=== PATIENT | female | born 2000 | race Caucasian/White ===

== ENCOUNTER 2023-04-13 18:39 | Emergency (ER) | payer OTHER ==
[2023-04-13 19:50] LABS: Specific Gravity 1.013 (1.005-1.030)
[2023-04-13 19:54] LABS: Specific Gravity 1.013 (1.005-1.030); Urine Bacteria None Seen /HPF (<20); Urine Bilirubin NEGATIVE (Negative); Urine Blood Negative (Negative); Urine Clarity Turbid (Clear); Urine Color Light-Yellow (Yellow); Urine Glucose NEGATIVE (Negative); Urine Mucus Slight /HPF (None Seen); Urine Protein NEGATIVE (Negative); Urine RBC <5 /HPF (None Seen); Urine Urobilinogen Normal (Normal); Urine pH 5.5 (5.0-7.0)
[2023-04-13] MEDS ORDERED: KETOROLAC 30 MG/ML INJ ONE (19:58)
--- NOTE | 2023-04-13 19:58 | RAD REPORT ---
EXAM DESCRIPTION: RAD - Lumbar Spine 3 Views - 04/13/2023 7:47 pm CLINICAL HISTORY: PAIN COMPARISON: No comparisons FINDINGS/IMPRESSION: No acute fracture. No malalignment. No significant focal degenerative changes.
--- NOTE | 2023-04-13 20:44 | ER ---
Nurse's Notes [facility] Name: Jayne Jaramillo Age: 23 yrs Sex: Female : 2000 Arrival Date: 04/13/2023 Time: 18:39 Bed 10 Private MD: Diagnosis: Low back pain Presentation: 04/13 19:10 Chief complaint: Patient states: I'm having back pain. Last night I heard a loud pop in vc1 the shower and then I slipped and hit my back on the toilet. Coronavirus screen: Client denies travel out of the [place] in the last 14 days. At this time, the client does not indicate any symptoms associated with coronavirus-19. Ebola Screen: Patient negative for fever greater than or equal to 101.5 degrees Fahrenheit, and additional compatible Ebola Virus Disease symptoms Patient denies exposure to infectious person. Patient denies travel to an Ebola-affected area in the 21 days before illness onset. No symptoms or risks identified at this time. Risk Assessment: Do you want to hurt yourself or someone else? Patient reports no desire to harm self or others. Onset of symptoms was April 12, 2023. 19:10 Method Of Arrival: Ambulatory vc1 19:10 Acuity: MICAH 4 vc1 19:14 Initial Sepsis Screen: Does the patient meet any 2 criteria? No. Patient's initial vc1 sepsis screen is negative. Does the patient have a suspected source of infection? No. Patient's initial sepsis screen is negative. Triage Assessment: 19:13 General: Appears in no apparent distress. uncomfortable, Behavior is calm, cooperative, vc1 appropriate for age. Pain: Complains of pain in back and lumbar area Pain radiates to low back area Pain currently is 10 out of 10 on a pain scale. Quality of pain is described as crampy, heavy. 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 - Social history:: Smoking status: Reported history of juuling and/or vaping. Screenin:14 [facility] ED Fall Risk Assessment (Adult) History of falling in the last 3 months, vc1 including since admission No falls in past 3 months (0 pts) Confusion or Disorientation No (0 pts) Intoxicated or Sedated No (0 pts) Impaired Gait No (0 pts) Mobility Assist Device Used No (0 pt) Altered Elimination No (0 pt). Abuse screen: Denies threats or abuse. Nutritional screening: No deficits noted. Tuberculosis screening: No symptoms or risk factors identified. Assessment: 21:02 Reassessment: Patient appears in no apparent distress at this time. Patient states kl feeling better. Patient states symptoms have improved. Neuro: No deficits noted. Vital Signs: 19:10 Weight 54.43 kg; Height 4 ft. 10 in. ; Pain 10/10; vc1 19:14 BP 105 / 65; Pulse 95; Resp 18; Temp 99; Pulse Ox 100% ; vc1 21:02 Pulse 62; Resp 16; Pulse Ox 98% on R/A; kl 19:10 Body Mass Index 25.08 (54.43 kg, 147.32 cm) vc1 19:10 Pain Scale: Adult vc1 ED Course: 18:42 Patient arrived in ED. ts1 18:47 Michelle Chung FNP-C is PHCP. kb 18:47 Tatiana Tian MD is Attending Physician. kb 19:12 Triage completed. vc1 19:13 Arm band placed on left wrist. vc1 19:15 PHCP role handed off by Michelle Chung FNP-C cp 19:15 Joshua Turner PA is PHCP. cp 19:24 Urinalysis w/ reflexes Sent. vc1 19:24 Test, Urine Sent. vc1 19:49 Lumbar Spine (3 Views) XRAY In Process Unspecified. EDMS 21:02 No provider procedures requiring assistance completed. Patient did not have IV access kl during this emergency room visit. Administered Medications: 19:50 Drug: Ketorolac IM 30 mg Route: IM; Site: right ventrogluteal; kl 21:02 Follow up: Response: No adverse reaction; Marked relief of symptoms kl 21:02 Drug: Lidoderm Topical Patch 5 % (700 mg/patch) 1 patches Route: Topical; Site: kl affected area; 21:02 Follow up: Response: No adverse reaction Outcome: 20:43 Discharge ordered by . roz 21:02 Discharged to home ambulatory. 21:02 Condition: improved 21:02 Discharge instructions given to patient, Instructed on discharge instructions, follow up and referral plans. medication usage, Demonstrated understanding of instructions, follow-up care, medications, Prescriptions given X 1. 21:03 Patient left the ED. Signatures: Dispatcher [employer] EDMichelle Suero, MICHELLE-Jeff MARTINEZ-Maida Rodas RN RN Joshua Johansen, PA PA Daniella Herrera RN RN vc1 Marifer Harrell, PAS PAS ts1 Corrections: (The following items were deleted from the chart) 19:13 19:12 Home Meds: None; vc1 vc1
--- NOTE | 2023-04-13 20:44 | EDPHYS ---
Physician Documentation [facility] Name: Jayne Jaramillo Age: 23 yrs Sex: Female : 2000 Arrival Date: 04/13/2023 Time: 18:39 Bed 10 Private MD: ED Physician Tatiana Tian HPI: 04/13 19:13 This 23 yrs old Female presents to ER via Ambulatory with complaints of Back Pain. kb 19:13 The patient presents with pain that is acute. The symptoms are located in the lumbar kb spine. Onset: The symptoms/episode began/occurred yesterday. The pain does not radiate. Associated signs and symptoms: The patient has no apparent associated signs or symptoms. The problem was sustained during a fall, while standing. Modifying factors: The patient symptoms are alleviated by nothing, the patient symptoms are aggravated by any movement. Severity of symptoms: At their worst the symptoms were mild, moderate, in the emergency department the symptoms are unchanged. The patient has not experienced similar symptoms in the past. The patient has not recently seen a physician. Pt reports she slipped when she got out of the tub and hit her lower back. c/o pain to lumbar area. Ambulates with steady gait. No numbness or tingling down legs. no urinary symptoms. 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 - Social history:: Smoking status: Reported history of juuling and/or vaping. ROS: 19:11 Constitutional: Negative for fever, chills, and weight loss. kb 19:11 Back: Positive for pain at rest, pain with movement, of the lumbar area. 19:11 All other systems are negative. Exam: 19:11 Constitutional: This is a well developed, well nourished patient who is awake, alert, kb and in no acute distress. Head/Face: Normocephalic, atraumatic. ENT: Moist Mucous membranes Cardiovascular: Regular rate and rhythm with a normal S1 and S2. No gallops, murmurs, or rubs. No pulse deficits. Respiratory: Respirations even and unlabored. No increased work of breathing. Talking in full sentences Skin: Warm, dry with normal turgor. Normal color. MS/ Extremity: Pulses equal, no cyanosis. Neurovascular intact. Full, normal range of motion. Neuro: Awake and alert, GCS 15, oriented to person, place, time, and situation. Moves all extremities. Normal gait. 19:11 Back: pain, that is moderate, of the lumbar area, ROM is painful, normal spinal alignment noted. Vital Signs: 19:10 Weight 54.43 kg; Height 4 ft. 10 in. ; Pain 10/10; vc1 19:14 BP 105 / 65; Pulse 95; Resp 18; Temp 99; Pulse Ox 100% ; vc1 21:02 Pulse 62; Resp 16; Pulse Ox 98% on R/A; kl 19:10 Body Mass Index 25.08 (54.43 kg, 147.32 cm) vc1 19:10 Pain Scale: Adult vc1 MDM: 18:47 Patient medically screened. kb 19:11 Differential diagnosis: vertebral fracture, strain, contusion, herniated disc. Data kb reviewed: vital signs, nurses notes. 19:16 Transition of care: After a detail discussion of the patient's case, care is kb transferred to Joshua GILMAN. 04/13 19:11 Order name: Test, Urine; Complete Time: 20:40 kb 04/13 19:16 Order name: Urinalysis w/ reflexes; Complete Time: 20:40 kb 04/13 19:11 Order name: Lumbar Spine (3 Views) XRAY; Complete Time: 20:40 kb Administered Medications: 19:50 Drug: Ketorolac IM 30 mg Route: IM; Site: right ventrogluteal; kl 21:02 Follow up: Response: No adverse reaction; Marked relief of symptoms kl 21:02 Drug: Lidoderm Topical Patch 5 % (700 mg/patch) 1 patches Route: Topical; Site: kl affected area; 21:02 Follow up: Response: No adverse reaction kl Disposition Summary: 04/13/23 20:43 Discharge Ordered Location: Home cp Problem: new cp Symptoms: have improved cp Condition: Stable cp Diagnosis - Low back pain cp Followup: cp - With: Private Physician - When: 2 - 3 days - Reason: Worsening of condition Discharge Instructions: - Discharge Summary Sheet cp - Acute Back Pain, Adult cp Forms: - Medication Reconciliation Form cp - Thank You Letter cp - Antibiotic Education cp - Prescription Opioid Use cp - Patient Portal Instructions cp - Leadership Thank You Letter cp Prescriptions: - Diclofenac Sodium 75 mg Oral tablet,delayed release (DR/EC) - take 1 tablet by ORAL route 2 times per day; 20 tablet; Refills: 0, Product cp Selection Permitted Signatures: Dispatcher [employer] EDMichelle Suero, MICHELLE-C MICHELLE-Maida Rodas RN RN Joshua Johansen, KALINA PA cp Daniella Santos RN RN vc1 Corrections: (The following items were deleted from the chart) 19:13 19:12 Home Meds: None; vc1 vc1
[2023-04-13] MEDS ORDERED: LIDOCAINE 4% PATCH ONE (21:07)
[2023-04-13 21:12] VITALS: BP 105/65; TEMP 99
[2023-04-13 21:15] VITALS: O2SAT 98
== END 2023-04-13 21:03 | disposition home or self-care (01) ==
LOC: ER 18:39
DX: M54.50 Low back pain, unspecified (principal)
CPT/HCPCS: 81001; 81025; 72100; 96372; 99284; J2001

== ENCOUNTER 2023-07-25 12:19 | Emergency (ER) | payer OTHER, SELFPAY ==
--- OUTSIDE RECORDS SUMMARY | 2023-07-25 12:23 | XMS REPORT | Continuity of Care Document ---
Author Name Unknown Address [address] [place] [address] [email or web address] Address [address] [place] [address] Care Team Providers Care Patient Transition Specialist Name Role Phone Pcp, Patient Does Not Have A Primary Care Physic fredy PELON LUQUE S Attending Clinician Unavailable Pelon Luque MD Attending Clinician [phone] Payers Payer Name Policy Type Policy Number Effective Date Expirati on Date Source [facility] [id number] 2022 00:00:00 Allergies, Adverse Reactions, Alerts Allergy Name Allergy Type Status Severity Reaction(s) Onset Date Inactive Date Treating Clinician Comments Source Cinnamon Propensi ty to adverse reaction s Active Swelling 11-25 00:00: 00 Entire body swelling [facility] CINNAMON DRUG INGREDI Active Swelling 11-25 00:00: 00 [facility] NO KNOWN ALLERGIE S Drug Class Active [facility] Social History Social Habit Start Date Stop Date Quantity Comments Source Exposure to SARS-CoV-2 (event) 2022-11-15 00:00:00 2022-11-25 20:22:00 Not sure [facility] Sex Assigned At 2000 00:00:00 2000 00:00:00 [facility] Smoking Status Start Date Stop Date Source Tobacco smoking consumption unknown [facility] Medications Ordered Medication Name Filled Medication Name Start Date Stop Date Current Medication? Ordering Clinician Indication Dosage Frequency Signature (SIG) Comments Components Source acetaminoph en (TYLENOL) tablet 650 mg 11-26 01:30: 00 11-26 01:35 :00 No 650mg 650 mg, Oral, ONCE, 1 dose, On Fri11/25/22 at 2030, JARED [facility] ibuprofen 800 mg tablet 11-26 00:00: 00 Yes [id number] 800mg Take 1 tablet by mouth every 8 (eight) hours as needed for Temp > 38.5 C or Pain (scale 4-6). [facility] benzonatate 200 mg capsule 11-26 00:00: 00 Yes [id number] 200mg Take 1 capsule by mouth 3 (three) times daily as needed for Cough. [facility] Vital Signs Vital Name Observation Time Observation Value Comments S ana maria Systolic blood pressure 2022-11-26 06:06:19 103 mm[Hg] [facility] Diastolic blood pressure 2022-11-26 06:06:19 71 mm[Hg] [facility] Heart rate 2022-11-26 06:06:19 108 /min [facility] Body temperature 2022-11-26 06:06:19 37.72 [place] [facility] Respiratory rate 2022-11-26 06:06:19 18 /min [facility] Oxygen saturation in Arterial blood by Pulse oximetry 2022-11-26 06:06:19 100 /min [facility] Body height 2022-11-26 01:22:[address] [facility] Body weight 2022-11-26 01:22:[address] [facility] BMI 2022-11-26 01:22:00 22.54 kg/m2 [facility] Procedures Procedure Date / Time Performed Performing Clinicia n Source RAPID INFLUENZA A/B 2022-11-26 01:41:00 Pelon Luque [facility] POCT TEST 2022-11-26 01:41:00 Pelon Luque [facility] COVID-19 (ID NOW RAPID TESTING) 2022-11-26 01:41:00 Pelon Luque [facility] NOTICE OF PRIVACY PRACTICES 2022-11-26 01:05:39 Doctor Unassigned, [place] [facility] CONSENT/REFUSAL FOR DIAGNOSIS AND TREATMENT 2022-11-26 01:05:18 Doctor Unassigned, [place] [facility] Encounters Start Date/Time End Date/Time Encounter Type Admission Type Attending [facility] Care Facility Care Department Encounter ID Source 2022-11-25 20:27:00 2022-11-26 01:08:00 Emergency X PELON LUQUE [facility] ERT [id number] [facility] 2022-11-25 20:27:00 2022-11-26 01:08:00 Emergency Pelon Luque [facility] [id number] [facility] Results Test Description Test Time Test Comments Results Result Co mments Source [facility]
[2023-07-25 13:12] LABS: SARS-CoV-2 Antigen Rapid Res Negative (Negative)
[2023-07-25] MEDS ORDERED: ALBUTEROL 2.5 MG/3 ML NEB SOL ONE (14:54)
[2023-07-25] MEDS ORDERED: IPRATROPIUM BROM 0.5MG/2.5ML ONE (14:54)
--- NOTE | 2023-07-25 15:12 | ER ---
Nurse's Notes [facility] Name: Jayne Jaramillo Age: 23 yrs Sex: Female : 2000 Arrival Date: 07/25/2023 Time: 12:19 Bed DIS3 Private MD: Diagnosis: Acute upper respiratory infection, unspecified Presentation: 07/25 12:48 Chief complaint: Cough and runny nose x 2 days. Coronavirus screen: Client presents hb with at least one sign or symptom that may indicate coronavirus-19. Provider contacted for isolation considerations. Ebola Screen: No symptoms or risks identified at this time. Onset of symptoms was July 24, 2023. 12:48 Method Of Arrival: Ambulatory hb 12:48 Acuity: MICAH 4 hb Triage Assessment: 12:48 General: Appears in no apparent distress. Behavior is calm, cooperative. Pain: Denies hb pain. Neuro: Level of Consciousness is awake, alert, obeys commands, Oriented to person, place, time, situation. Cardiovascular: Patient's skin is warm and dry. Respiratory: Respiratory effort is even, unlabored, Respiratory pattern is regular, symmetrical. Historical: - Allergies: 12:48 No Known Allergies; hb - Home Meds: 12:48 Nexplanon 68 mg subdermal Implant [Active]; hb - PMHx: 12:48 None; hb - PSHx: 12:48 None; hb - Immunization history:: Adult Immunizations up to date. - Social history:: Smoking status: Patient denies any tobacco usage or history of. - Family history:: not pertinent. Screenin:28 [facility] ED Fall Risk Assessment (Adult) History of falling in the last 3 months, bp including since admission No falls in past 3 months (0 pts). Abuse screen: Denies threats or abuse. Denies injuries from another. Nutritional screening: No deficits noted. Tuberculosis screening: No symptoms or risk factors identified. Assessment: 12:49 General: See triage assessment.. hb Vital Signs: 12:48 BP 126 / 76; Pulse 68; Resp 16; Temp 98; Pulse Ox 100% ; Weight 65.77 kg; Height 5 ft. hb 2 in. ; Pain 0/10; 12:48 Body Mass Index 26.52 (65.77 kg, 157.48 cm) hb 12:48 Pain Scale: Adult hb ED Course: 12:23 Patient arrived in ED. ts1 12:24 Marlon Duke MD is Attending Physician. rt 12:48 Triage completed. hb 12:48 SARS RAPID Sent. hb 12:48 Influenza Screen (a \T\ B) Sent. hb 12:49 Arm band placed on. hb 14:34 Arnold Rodriguez, RN is Primary Nurse. bp 15:28 No provider procedures requiring assistance completed. Patient did not have IV access bp during this emergency room visit. 15:28 Patient has correct armband on for positive identification. bp Administered Medications: 15:04 Drug: DuoNeb Nebulize (3:1) (2.5 mg - 0.5 mg) 3 ml Nebulizer once Route: Nebulizer; bp 15:28 Follow up: Response: No adverse reaction bp Outcome: 15:11 Discharge ordered by MD. rt 15:28 Discharged to home ambulatory, bp 15:28 Condition: stable 15:28 Discharge instructions given to patient, Instructed on discharge instructions, follow up and referral plans. Demonstrated understanding of instructions, follow-up care, 15:29 Patient left the ED. bp Signatures: Lea Garay, RN RN Arnold Rodriguez, RN RN bp Marlon Duke MD MD rt Marifer Harrell PAS PAS ts1
--- NOTE | 2023-07-25 15:12 | EDPHYS ---
Physician Documentation [facility] Name: Jayne Jaramillo Age: 23 yrs Sex: Female : 2000 Arrival Date: 07/25/2023 Time: 12:19 Bed DIS3 Private MD: ED Physician Marlon Duke HPI: 07/25 15:05 This 23 yrs old Unknown Female presents to ER via Ambulatory with complaints of Cough, rt Sneezing. 15:05 Patient with history of asthma presents to the ED with cough, sneezing, mild shortness rt of breath starting about 2 days ago. She does have positive sick contacts. She denies other acute complaints at this time, symptoms are moderate severity, no other aggravating elevating factors.. Historical: - Allergies: 12:48 No Known Allergies; hb - Home Meds: 12:48 Nexplanon 68 mg subdermal Implant [Active]; hb - PMHx: 12:48 None; hb - PSHx: 12:48 None; hb - Immunization history:: Adult Immunizations up to date. - Social history:: Smoking status: Patient denies any tobacco usage or history of. - Family history:: not pertinent. ROS: 15:05 Constitutional: Negative for fever, chills, and weight loss, Cardiovascular: Negative rt for chest pain, palpitations, and edema, Abdomen/GI: Negative for abdominal pain, nausea, vomiting, diarrhea, and constipation, MS/Extremity: Negative for injury and deformity, Skin: Negative for injury, rash, and discoloration, Neuro: Negative for headache, weakness, numbness, tingling, and seizure, Psych: Negative for depression, anxiety, suicide ideation, homicidal ideation, and hallucinations, 15:05 Respiratory: Positive for cough, shortness of breath, wheezing, Negative for Exam: 15:05 Constitutional: This is a well developed, well nourished patient who is awake, alert, rt and in no acute distress. Head/Face: Normocephalic, atraumatic. Chest/axilla: Normal chest wall appearance and motion. Nontender with no deformity. No lesions are appreciated. Cardiovascular: Regular rate and rhythm with a normal S1 and S2. No gallops, murmurs, or rubs. Normal PMI, no JVD. No pulse deficits. Respiratory: Lungs have equal breath sounds bilaterally, clear to auscultation and percussion. No rales, rhonchi or wheezes noted. No increased work of breathing, no retractions or nasal flaring. Abdomen/GI: Soft, non-tender, with normal bowel sounds. No distension or tympany. No guarding or rebound. No evidence of tenderness throughout. Skin: Warm, dry with normal turgor. Normal color with no rashes, no lesions, and no evidence of cellulitis. MS/ Extremity: Pulses equal, no cyanosis. Neurovascular intact. Full, normal range of motion. Neuro: Awake and alert, GCS 15, oriented to person, place, time, and situation. Cranial nerves II-XII grossly intact. Motor strength 5/5 in all extremities. Sensory grossly intact. Cerebellar exam normal. Normal gait. Vital Signs: 12:48 BP 126 / 76; Pulse 68; Resp 16; Temp 98; Pulse Ox 100% ; Weight 65.77 kg; Height 5 ft. hb 2 in. ; Pain 0/10; 12:48 Body Mass Index 26.52 (65.77 kg, 157.48 cm) hb 12:48 Pain Scale: Adult hb MDM: 12:24 Patient medically screened. rt 15:05 Differential Diagnosis: Other Flu, COVID, asthma, viral syndrome. Data reviewed: vital rt signs, nurses notes, lab test result(s). Test considered but Not performed: X-ray: Clear breath sounds, stable vital signs, x-ray not indicated. Care significantly affected by the following chronic conditions: Asthma. 07/25 12:24 Order name: Influenza Screen (a \T\ B); Complete Time: 13:42 rt 07/25 12:24 Order name: SARS RAPID; Complete Time: 13:42 rt Administered Medications: 15:04 Drug: DuoNeb Nebulize (3:1) (2.5 mg - 0.5 mg) 3 ml Nebulizer once Route: Nebulizer; bp 15:28 Follow up: Response: No adverse reaction bp Disposition Summary: 07/25/23 15:11 Discharge Ordered Notes: Location: Home rt Problem: new rt Symptoms: have improved rt Condition: Stable rt Diagnosis - Acute upper respiratory infection, unspecified rt Followup: rt - With: Private Physician - When: 2 - 3 days - Reason: Discharge Instructions: - Discharge Summary Sheet rt - Viral Respiratory Infection rt Forms: - Medication Reconciliation Form rt - Thank You Letter rt - Antibiotic Education rt - Prescription Opioid Use rt - Patient Portal Instructions rt - Leadership Thank You Letter rt Prescriptions: - albuterol sulfate 2.5 mg /3 mL (0.083 %) Inhalation Solution for Nebulization - nebulize 3 milliliter INHALATION route every 4 to 8 hours as needed for rt bronchospasm; 90 milliliter; Refills: 0, Product Selection Permitted - Prednisone 20 mg Oral Tablet - take 2 tablets ORAL route once daily for 5 days; 10 tablet; Refills: 0, Product rt Selection Permitted Signatures: Dispatcher [employer] EDGA Lea Garay RN RN Arnold Farmer RN RN bp Marlon Duke MD MD rt
[2023-07-25 15:38] VITALS: BP 126/76; TEMP 98; O2SAT 100
== END 2023-07-25 15:29 | disposition home or self-care (01) ==
LOC: ER 12:19
DX: J06.9 Acute upper respiratory infection, unspecified (principal); Z11.52 Encounter for screening for COVID-19
CPT/HCPCS: 36415; 87804; 87811; 94640; 99284; J7613; J7644

== ENCOUNTER 2023-12-08 14:03 | Emergency (ER) | payer SELFPAY ==
[2023-12-08] MEDS ORDERED: NA CHLORIDE 0.9% 1,000 ML ONE (16:23)
[2023-12-08] MEDS ORDERED: KETOROLAC 30 MG/ML INJ ONE (16:23)
[2023-12-08] MEDS ORDERED: DIPHENHYDRAMINE 50 MG/ML VIAL ONE (16:23)
[2023-12-08] MEDS ORDERED: METOCLOPRAMIDE 10 MG/2mL INJ ONE (16:23)
--- NOTE | 2023-12-08 17:15 | EDPHYS ---
Physician Documentation [facility] Name: Jayne Jaramillo Age: 23 yrs Sex: Female : 2000 Arrival Date: 12/08/2023 Time: 14:03 Bed 9 Private MD: ED Physician Darian Sepulveda HPI: 12/07 19:53 This 23 yrs old Female presents to ER via Ambulatory with complaints of Headache. sb4 19:53 headache and back pain x 1 day. took ibuprofen last night and excedrin this morning sb4 without relief. reports chronic back pain due to injury 4 years ago. states the pain is generalized all over her entire back, cannot pinpoint a specific area. Historical: - Allergies: 14:30 No Known Allergies; ld1 - PMHx: 14:30 None; ld1 - PSHx: 14:30 None; ld1 - Immunization history:: Adult Immunizations up to date. - Infectious Disease History:: Denies. - Social history:: Smoking status: Patient denies any tobacco usage or history of. Patient/guardian denies using alcohol. ROS: 19:53 Constitutional: Negative for fever, chills, and weight loss, sb4 19:53 Back: Positive for pain at rest, pain with movement, 19:53 Neuro: Positive for headache, 19:53 All other systems are negative, Exam: 19:53 Constitutional: This is a well developed, well nourished patient who is awake, alert, sb4 and in no acute distress. Head/Face: Normocephalic, atraumatic. Eyes: Extra-ocular motions intact. Periorbital areas with no swelling, redness, or edema. ENT: Mucous membranes moist. Cardiovascular: Regular rate and rhythm with a normal S1 and S2. Respiratory: Lungs have equal breath sounds bilaterally, clear to auscultation and percussion. No rales, rhonchi or wheezes noted. No increased work of breathing, no retractions or nasal flaring. Abdomen/GI: Soft, non-tender, no distension. Skin: Warm, dry with normal turgor. Normal color with no rashes, no lesions, and no evidence of cellulitis. MS/ Extremity: Pulses equal, no cyanosis. Neurovascular intact. Full, normal range of motion. Neuro: Awake and alert, GCS 15, oriented to person, place, time, and situation. Motor strength 5/5 in all extremities. Sensory grossly intact. Vital Signs: 14:28 BP 112 / 78; Pulse 105; Resp 18; Temp 98.3(TE); Pulse Ox 100% on R/A; Weight 49.9 kg; ld1 Height 4 ft. 10 in. ; Pain 10/10; 17:24 BP 118 / 79; Pulse 76; Resp 16; Pulse Ox 99% ; as6 14:28 Body Mass Index 22.99 (49.90 kg, 147.32 cm) ld1 14:28 Pain Scale: Adult ld1 MDM: 14:35 Patient medically screened. sb4 19:53 Data reviewed: vital signs, nurses notes, and as a result, I will discharge patient. sb4 Counseling: I had a detailed discussion with the patient and/or guardian regarding the historical points, exam findings, and any diagnostic results supporting the discharge/admit diagnosis, to return to the emergency department if symptoms worsen or persist or if there are any questions or concerns that arise at home. Administered Medications: 16:30 Drug: Ketorolac IVP 15 mg IVP once Route: IVP; Site: right antecubital; as6 17:22 Follow up: Response: No adverse reaction as6 16:30 Drug: metoCLOPramide IVP 10 mg IVP once; over 1 to 2 minutes Route: IVP; Site: right as6 antecubital; 17:22 Follow up: Response: No adverse reaction as6 16:30 Drug: diphenhydrAMINE IVP 12.5 mg IVP once Route: IVP; Site: right antecubital; as6 17:23 Follow up: Response: No adverse reaction as6 16:31 Drug: NS 0.9% IV 1000 ml IV at 1 bolus Per protocol; 1000 mL bolus Route: IV; Rate: 1 as6 bolus; Site: right antecubital; 17:23 Follow up: Response: No adverse reaction; IV Status: Completed infusion; IV Intake: as6 1000ml Disposition: 12/08 14:52 Co-signature as Attending Physician, Darian Sepulveda MD I reviewed the patient's care rn provided by the Advanced Practice Provider and agree with the diagnosis and treatment plan. Disposition Summary: 12/08/23 17:15 Discharge Ordered Notes: Location: Home sb4 Problem: new sb4 Symptoms: have improved sb4 Condition: Stable sb4 Diagnosis - Headache sb4 - Back pain sb4 Followup: sb4 - With: Emergency Department - When: As needed - Reason: Trouble breathing, Worsening of condition Discharge Instructions: - Discharge Summary Sheet sb4 - Migraine Headache sb4 - Chronic Back Pain, [id number] sb4 Forms: - Antibiotic Education sb4 - Patient Portal Instructions sb4 - Leadership Thank You Letter sb4 Signatures: Darian Sepulveda MD MD rn Sims, Lauren RN RN ld1 Alden Grigsby RN RN as6 Courtney Marie, PA-C PA-C sb4
--- NOTE | 2023-12-08 17:15 | ER ---
Nurse's Notes [facility] Name: Jayne Jaramillo Age: 23 yrs Sex: Female : 2000 Arrival Date: 12/08/2023 Time: 14:03 Bed 9 Private MD: Diagnosis: Headache;Back pain Presentation: 12/07 14:28 Chief complaint: Patient states: Migraines and back pain X 2 days. Coronavirus screen: ld1 At this time, the client does not indicate any symptoms associated with coronavirus-19. Ebola Screen: No symptoms or risks identified at this time. Initial Sepsis Screen: Does the patient meet any 2 criteria? No. Patient's initial sepsis screen is negative. Does the patient have a suspected source of infection? No. Patient's initial sepsis screen is negative. Risk Assessment: Do you want to hurt yourself or someone else? Patient reports no desire to harm self or others. Onset of symptoms was December 08, 2023. 14:28 Method Of Arrival: Ambulatory ld1 14:28 Acuity: MICAH 3 ld1 Triage Assessment: 14:30 Headache History: The patient has had previous headaches and this one is similar to ld1 previous episodes. General: Appears in no apparent distress. comfortable, Behavior is calm, cooperative, appropriate for age. Pain: Complains of pain in face and back Pain does not radiate. Pain currently is 10 out of 10 on a pain scale. Pain began 2-3 days ago. Also complains of no other associated symptoms. EENT: No signs and/or symptoms were reported regarding the EENT system. Neuro: Level of Consciousness is awake, alert, obeys commands, Oriented to person, place, time, situation. Cardiovascular: Capillary refill < 3 seconds Patient's skin is warm and dry. Respiratory: Airway is patent Respiratory effort is even, unlabored. GI: Abdomen is round non-distended. : No signs and/or symptoms were reported regarding the genitourinary system. Derm: No signs and/or symptoms reported regarding the dermatologic system. Historical: - Allergies: 14:30 No Known Allergies; ld1 - PMHx: 14:30 None; ld1 - PSHx: 14:30 None; ld1 - Immunization history:: Adult Immunizations up to date. - Infectious Disease History:: Denies. - Social history:: Smoking status: Patient denies any tobacco usage or history of. Patient/guardian denies using alcohol. Screenin:23 [facility] ED Fall Risk Assessment (Adult) History of falling in the last 3 months, as6 including since admission No falls in past 3 months (0 pts) Confusion or Disorientation No (0 pts) Intoxicated or Sedated No (0 pts) Impaired Gait No (0 pts) Mobility Assist Device Used No (0 pt) Altered Elimination No (0 pt) Score/Fall Risk Level 0 - 2 = Low Risk Oriented to surroundings, Maintained a safe environment, Educated pt \T\ family on fall prevention, incl call for assistance when getting out of bed, Assessed \T\ reinforced patient's understanding of fall precautions. Abuse screen: Denies threats or abuse. Denies injuries from another. Nutritional screening: No deficits noted. Tuberculosis screening: No symptoms or risk factors identified. Assessment: 17:24 Reassessment: Patient appears in no apparent distress at this time. Patient and/or as6 family updated on plan of care and expected duration. Pain level reassessed. Patient is alert, oriented x 3, equal unlabored respirations, skin warm/dry/pink. Patient states feeling better. Patient states symptoms have improved. Vital Signs: 14:28 BP 112 / 78; Pulse 105; Resp 18; Temp 98.3(TE); Pulse Ox 100% on R/A; Weight 49.9 kg; ld1 Height 4 ft. 10 in. ; Pain 10/10; 17:24 BP 118 / 79; Pulse 76; Resp 16; Pulse Ox 99% ; as6 14:28 Body Mass Index 22.99 (49.90 kg, 147.32 cm) ld1 14:28 Pain Scale: Adult ld1 ED Course: 14:08 Patient arrived in ED. mr 14:30 Triage completed. ld1 14:30 Arm band placed on right wrist. ld1 14:31 Courtney Marie PA-C is PHCP. sb4 14:31 Darian Sepulveda MD is Attending Physician. sb4 15:59 Alden Grigsby, MARION is Primary Nurse. as6 16:22 Inserted saline lock: 20 gauge in right antecubital area, using aseptic technique. as6 17:23 Bed in low position. Call light in reach. Side rails up X2. Provided Education on: as6 follow up. 17:24 No provider procedures requiring assistance completed. IV discontinued, intact, as6 bleeding controlled, No redness/swelling at site. Pressure dressing applied. Administered Medications: 16:30 Drug: Ketorolac IVP 15 mg IVP once Route: IVP; Site: right antecubital; as6 17:22 Follow up: Response: No adverse reaction as6 16:30 Drug: metoCLOPramide IVP 10 mg IVP once; over 1 to 2 minutes Route: IVP; Site: right as6 antecubital; 17:22 Follow up: Response: No adverse reaction as6 16:30 Drug: diphenhydrAMINE IVP 12.5 mg IVP once Route: IVP; Site: right antecubital; as6 17:23 Follow up: Response: No adverse reaction as6 16:31 Drug: NS 0.9% IV 1000 ml IV at 1 bolus Per protocol; 1000 mL bolus Route: IV; Rate: 1 as6 bolus; Site: right antecubital; 17:23 Follow up: Response: No adverse reaction; IV Status: Completed infusion; IV Intake: as6 1000ml Medication: 17:24 VIS not applicable for this client. as6 Intake: 17:23 IV: 1000ml; Total: 1000ml. as6 Outcome: 17:15 Discharge ordered by . sb4 17:24 Discharged to home ambulatory, with significant other, as6 17:24 Condition: stable 17:24 Discharge instructions given to patient, Instructed on discharge instructions, follow up and referral plans. Demonstrated understanding of instructions, follow-up care, 17:24 Patient left the ED. as6 Signatures: Geneva Chung Reg Reg mr Xuan Mendoza RN RN ld1 Alden Grigsby RN RN as6 Courtney Marie PA-C PADwain sb4
[2023-12-08 18:19] VITALS: BP 118/79; TEMP 98.3; O2SAT 99
== END 2023-12-08 17:24 | disposition home or self-care (01) ==
LOC: ER 14:03
DX: R51.9 Headache, unspecified (principal); M54.9 Dorsalgia, unspecified
CPT/HCPCS: 96361; 96374; 96375; 99284; J1200; J2765; J7030